=== PATIENT | female | born 1990 | race Caucasian/White ===

== ENCOUNTER 2017-01-23 02:40 | Emergency (ER) | payer OTHER, SELFPAY ==
[~2017-01-23 02:40] MED LIST: ACET1TAB17 PO; ACET50TA PO; ALBU17IN INH; AMBI6.25 PO; ATARAX PO; ATOM40CA PO; CLEO300C2 PO; COLA100C5 PO; EUCECRE3 TOP; IBUP80TA PO; KLON0.5T PO; No home meds; PRED20TA PO; PROZ20CA11 PO; ROBISYP PO; SYMB80INH INH; TRAZ1TAB14 PO; TRIAMCINOLONE CREAM TOP; TUMS500C PO; VITMTA PO; ZYRT10CA PO; ZYRT10TA PO
[2017-01-23] MEDS ORDERED: phenergan TOP (03:02)
[2017-01-23] MEDS ORDERED: NS 1,000 ML IV ONE (04:45)
[2017-01-23] MEDS ORDERED: METOCLOPRAMIDE INJ 10MG/2ML VIAL (J2765) IV ONE (04:45)
[2017-01-23 05:22] LABS: BASO % 0.4 % (0.0-1.0); EOS # 0.4 K/mm3 (0.0-0.50); EOS % 3.6 % (0.0-3.0); LARGE UNSTAINED CELL # 0.2 K/mm3 (0.0-0.4); LARGE UNSTAINED CELL % 1.6 % (0.0-4.0); LYMPH # 1.9 K/mm3 (1.5-6.5); MEAN CORPUSCULAR HEMOGLOBIN 33.3 pg (27.0-33.0); MEAN CORPUSCULAR HGB CONC 36.4 g/dl (32.0-36.5); MEAN CORPUSCULAR VOLUME 91.5 fl (80.0-96.0); MONO # 0.5 K/mm3 (0.0-0.8); MONO % 4.6 % (0.0-5.0); NEUTROPHILS # 7.3 K/mm3 (1.8-7.7); NEUTROPHILS % 72.9 % (36.0-66.0); PLATELET COUNT, AUTOMATED 191 k/mm3 (150-450); RED CELL DISTRIBUTION WIDTH 13.5 % (11.5-14.5)
[2017-01-23 05:43] LABS: ALBUMIN 3.3 GM/DL (3.2-5.2); ALKALINE PHOSPHATASE 71 U/L (45-117); ALT/SGPT 22 U/L (12-78); ANION GAP 8 MEQ/L (8-16); AST/SGOT 13 U/L (15-37); BILIRUBIN,DIRECT 0.1 MG/DL (0.0-0.2); BILIRUBIN,TOTAL 0.6 MG/DL (0.2-1.0); BLOOD UREA NITROGEN 9 MG/DL (7-18); CALCIUM LEVEL 8.6 MG/DL (8.5-10.1); CARBON DIOXIDE LEVEL 24 MEQ/L (21-32); CHLORIDE LEVEL 104 MEQ/L (98-107); CREATININE FOR GFR 0.51 MG/DL (0.55-1.02); GLOMERULAR FILTRATION RATE > 60.0 (>60); GLUCOSE, FASTING 82 MG/DL (70-105); POTASSIUM SERUM 3.4 MEQ/L (3.5-5.1); SODIUM LEVEL 136 MEQ/L (136-145); TOTAL PROTEIN 6.6 GM/DL (6.4-8.2)
[2017-01-23] MEDS ORDERED: REGL10TA6 PO (06:25)
[2017-01-23 06:32] VITALS: BP 132/78
== END 2017-01-23 06:33 | disposition home or self-care (01) ==
LOC: M ED 02:40
DX: O21.0 Mild hyperemesis gravidarum (principal); Z3A.16 16 weeks gestation of pregnancy
CPT/HCPCS: 36415; 80048; 80076; 83690; 85025; 96361; 96374; 99284; J2765

== ENCOUNTER 2021-01-29 11:15 | Emergency (ER) | payer SELFPAY ==
[~2021-01-29] VITALS: Ht 165.1 cm; Wt 99.3 kg
[~2021-01-29 11:15] MED LIST changes: -ACET1TAB17 PO; +ACET1TAB55 PO; -ACET50TA PO; -ATOM40CA PO; +ATOM40CA16 PO; +MAPA500T17 PO; +MAPA500T2 PO; +REGL10TA6 PO; +phenergan TOP
[2021-01-29] MEDS ORDERED: NS 1,000 ML IV SCH (13:15)
[2021-01-29] MEDS ORDERED: ONDANSETRON 4MG/2ML VIAL IV ONE (13:15)
[2021-01-29] MEDS ORDERED: MORPHINE 4 MG/ML 1ML VIAL/SYRINGE (J2270) IV PRN (13:15)
[2021-01-29 14:13] LABS: URINE PREG TEST NEGATIVE (NEGATIVE)
[2021-01-29 14:22] LABS: BASO # 0.1 10^3/uL (0.0-0.2); BASO % 0.8 % (0.0-1.0); EOS # 0.3 10^3/uL (0.0-0.5); EOS % 3.4 % (0.0-3.0); HEMATOCRIT 40.8 % (36.0-47.0); HEMOGLOBIN 13.9 g/dl (12.0-15.5); LYMPH # 1.7 10^3/uL (1.5-5.0); LYMPH % 21.8 % (24.0-44.0); MEAN CORPUSCULAR HEMOGLOBIN 32.3 pg (27.0-33.0); MEAN CORPUSCULAR HGB CONC 34.1 g/dl (32.0-36.5); MEAN CORPUSCULAR VOLUME 94.7 fl (80.0-96.0); MONO # 0.9 10^3/uL (0.0-0.8); MONO % 11.5 % (2.0-8.0); NEUTROPHILS # 4.8 10^3/uL (1.5-8.5); NEUTROPHILS % 62.1 % (36.0-66.0); PLATELET COUNT, AUTOMATED 201 10^3/uL (150-450); RED BLOOD COUNT 4.31 10^6/uL (4.00-5.40); WHITE BLOOD COUNT 7.7 10^3/uL (4.0-10.0)
[2021-01-29 14:50] LABS: ALBUMIN 3.9 GM/DL (3.2-5.2); ALT/SGPT 47 U/L (12-78); BILIRUBIN,DIRECT 0.1 MG/DL (0.0-0.2); BILIRUBIN,TOTAL 0.3 MG/DL (0.2-1.0); BLOOD UREA NITROGEN 11 MG/DL (7-18); CARBON DIOXIDE LEVEL 28 MEQ/L (21-32); CHLORIDE LEVEL 107 MEQ/L (98-107); CREATININE FOR GFR 0.63 MG/DL (0.55-1.30); GLOMERULAR FILTRATION RATE > 60.0 (>60); GLUCOSE, FASTING 84 MG/DL (70-100); LIPASE 74 U/L (73-393); POTASSIUM SERUM 4.6 MEQ/L (3.5-5.1); SODIUM LEVEL 140 MEQ/L (136-145); TOTAL PROTEIN 6.7 GM/DL (6.4-8.2)
[2021-01-29 15:44] LABS: GC DNA AMPLIFICATION NEGATIVE (NEGATIVE)
--- NOTE | 2021-01-29 15:51 | REP ---
INDICATION: EPIGASTRIC/RUQ PAIN S/P CHOLECYSTECOMY. COMPARISON: 09/14/2014 TECHNIQUE: Routine ultrasound of the right upper quadrant FINDINGS: The gallbladder has been removed. The bile ducts are not dilated. The common bile duct measures 5 mm. The liver shows normal size. There is a 3.2 x 2.9 x 2.3 cm hemangioma in the right lobe which is unchanged compared with the previous study. Pancreas, aorta and right kidney are unremarkable. IMPRESSION: Stable hemangioma in the right lobe. Postoperative changes after cholecystectomy. No biliary tract dilatation. <Electronically signed by Louis Toney > 01/29/21 [id number]
[2021-01-29] MEDS ORDERED: ZOFR4TAB16 PO (16:47)
[2021-01-29 17:22] VITALS: BP 121/71
== END 2021-01-29 17:45 | disposition home or self-care (01) ==
LOC: M ED 11:15
DX: K29.70 Gastritis, unspecified, without bleeding (principal); R11.2 Nausea with vomiting, unspecified; R19.7 Diarrhea, unspecified; R10.11 Right upper quadrant pain; R93.2 Abnormal findings on diagnostic imaging of liver and biliary tract; K21.9 Gastro-esophageal reflux disease without esophagitis; J45.909 Unspecified asthma, uncomplicated; F41.9 Anxiety disorder, unspecified; F32.9 Major depressive disorder, single episode, unspecified; L40.9 Psoriasis, unspecified; J42 Unspecified chronic bronchitis; F17.200 Nicotine dependence, unspecified, uncomplicated; F12.10 Cannabis abuse, uncomplicated; Z87.442 Personal history of urinary calculi; Z91.040 Latex allergy status
CPT/HCPCS: 76705; 80048; 80076; 81001; 83690; 84703; 85025; 87491; 87591; 99284; J2405

== ENCOUNTER 2021-02-15 14:58 | Emergency (ER) | payer SELFPAY ==
[~2021-02-15] VITALS: Ht 165.1 cm; Wt 97.9 kg
[~2021-02-15 14:58] MED LIST changes: +ZOFR4TAB16 PO
[2021-02-15 15:51] LABS: HEMATOCRIT 41.5 % (36.0-47.0); HEMOGLOBIN 14.1 g/dl (12.0-15.5); MEAN CORPUSCULAR HEMOGLOBIN 32.4 pg (27.0-33.0); MEAN CORPUSCULAR VOLUME 95.4 fl (80.0-96.0); PLATELET COUNT, AUTOMATED 244 10^3/uL (150-450); RED BLOOD COUNT 4.35 10^6/uL (4.00-5.40); WHITE BLOOD COUNT 8.4 10^3/uL (4.0-10.0)
[2021-02-15 16:14] LABS: AMPHETAMINES LEVEL URINE NEGATIVE (NEGATIVE); BARBITURATES URINE NEGATIVE (NEGATIVE); BENZODIAZEPINES URINE NEGATIVE (NEGATIVE); CANNABINOIDS URINE POSITIVE (NEGATIVE); COCAINE METABOLITE URINE NEGATIVE (NEGATIVE); METHADONE URINE NEGATIVE (NEGATIVE); OPIATES URINE NEGATIVE (NEGATIVE); PHENCYCLIDINE URINE NEGATIVE (NEGATIVE)
[2021-02-15 16:18] LABS: HCG, SERUM QUALITATIVE NEGATIVE (NEGATIVE)
[2021-02-15 16:22] LABS: ALT/SGPT 29 U/L (12-78); BILIRUBIN,DIRECT 0.1 MG/DL (0.0-0.2); BILIRUBIN,TOTAL 0.3 MG/DL (0.2-1.0); BLOOD UREA NITROGEN 10 MG/DL (7-18); CALCIUM LEVEL 8.9 MG/DL (8.5-10.1); CARBON DIOXIDE LEVEL 25 MEQ/L (21-32); CHLORIDE LEVEL 111 MEQ/L (98-107); CREATININE FOR GFR 0.74 MG/DL (0.55-1.30); ETHYL ALCOHOL (ETHANOL) < 0.003 % (0.000-0.010); GLOMERULAR FILTRATION RATE > 60.0 (>60); GLUCOSE, FASTING 95 MG/DL (70-100); POTASSIUM SERUM 4.2 MEQ/L (3.5-5.1); SODIUM LEVEL 140 MEQ/L (136-145)
[2021-02-15 16:23] LABS: ACETAMINOPHEN LEVEL 2.1 UG/ML (10.0-30.0); SALICYLATE LEVEL 3.6 MG/DL (5.0-30.0); THYROID STIMULATING HORMONE 0.392 uIU/ML (0.358-3.740)
[2021-02-15] MEDS ORDERED: HOME MED LIST COMPLETE! XX SCH (21:30)
[2021-02-16 12:48] LABS: RSV AMPLIFICATION NEGATIVE (NEGATIVE)
[2021-02-16 15:49] VITALS: BP 119/66
[2021-02-16] MEDS ORDERED: HOME MED LIST COMPLETE! XX SCH (19:35)
--- NOTE | 2021-02-16 21:16 | ECGEPIP ---
[facility] - ED Test Date: 2021-02-15 Pat Name: ABDULLAHI HEDRICK Department: Room: - Gender: Female Drive In Waiter/Waitress: ALKA : 1990 Requested By: SHAVON CASILLAS Order Number: [id number] Reading MD: Patti Kaur Measurements Intervals [place] Rate: 72 P: 54 [place]: 174 QRS: 54 QRSD: 96 T: 47 QT: 384 QTc: 420 Interpretive Statements Normal sinus rhythm No prior Electronically Signed on 02-16-2021 21:16:33 EDT by Patti Kaur
== END 2021-02-17 02:00 ==
LOC: M ED 14:58
DX: R45.851 Suicidal ideations (principal); F31.89 Other bipolar disorder; F90.9 Attention-deficit hyperactivity disorder, unspecified type; F17.200 Nicotine dependence, unspecified, uncomplicated; F12.10 Cannabis abuse, uncomplicated; Z91.040 Latex allergy status

== ENCOUNTER 2021-03-19 09:21 | Emergency (ER) | payer OTHER, SELFPAY ==
[~2021-03-19] VITALS: Ht 165.1 cm; Wt 97.7 kg
[2021-03-19 09:22] VITALS: BP 130/81
[2021-03-19] MEDS ORDERED: GABA600T4 (09:39)
[2021-03-19] MEDS ORDERED: FLUO20CA22 (09:39)
[2021-03-19] MEDS ORDERED: IVER1TAB (09:39)
[2021-03-19] MEDS ORDERED: BUSP5TA (09:39)
[2021-03-19] MEDS ORDERED: ARIP1TAB6 (09:39)
[2021-03-19] MEDS ORDERED: HYDR50TA70 (09:39)
--- NOTE | 2021-03-19 12:13 | REP ---
INDICATION: wheezing r sided rales. COMPARISON: 05/14/2015 TECHNIQUE: PA and lateral FINDINGS: There is evidence of pulmonary vascular redistribution which has developed since the last exam. There is a slight haziness seen throughout the basilar vascularity. There are no acute patchy parenchymal opacities or pleural effusions. The heart is not enlarged. The osseous structures are intact. IMPRESSION: Possible mild early interstitial edema. <Electronically signed by Chapin Kelly > 03/19/21 [id number]
[2021-03-19] MEDS ORDERED: PRED20TA PO (12:28)
[2021-03-19] MEDS ORDERED: VENTAER INH (12:28)
--- NOTE | 2021-03-19 14:58 | ED PDOC ---
Post-Departure Follow-Up radiology rpeor tfaxed to linda Morales Sarah MD Mar 19, 2021 14:58
== END 2021-03-19 12:41 | disposition home or self-care (01) ==
LOC: M ED 09:21
DX: J00 Acute nasopharyngitis [common cold] (principal); R06.2 Wheezing; F41.9 Anxiety disorder, unspecified; F32.9 Major depressive disorder, single episode, unspecified; F17.200 Nicotine dependence, unspecified, uncomplicated; F12.10 Cannabis abuse, uncomplicated; Z87.09 Personal history of other diseases of the respiratory system; Z91.040 Latex allergy status

== ENCOUNTER 2021-07-18 01:05 | Emergency (ER) | payer MEDICAID, OTHER ==
[~2021-07-18] VITALS: Ht 165.1 cm; Wt 92.2 kg
[~2021-07-18 01:05] MED LIST changes: +ARIP1TAB6; +BUSP5TA; +FLUO20CA22; +GABA600T4; +HYDR50TA70; +IVER1TAB; +VENTAER INH
[2021-07-18 02:30] LABS: BASO # 0.1 10^3/uL (0.0-0.2); BASO % 0.3 % (0.0-1.0); EOS # 0.3 10^3/uL (0.0-0.5); EOS % 1.3 % (0.0-3.0); HEMATOCRIT 42.9 % (36.0-47.0); HEMOGLOBIN 14.8 g/dl (12.0-15.5); LYMPH # 1.3 10^3/uL (1.5-5.0); LYMPH % 6.1 % (24.0-44.0); MEAN CORPUSCULAR HGB CONC 34.5 g/dl (32.0-36.5); MEAN CORPUSCULAR VOLUME 92.9 fl (80.0-96.0); MONO # 1.5 10^3/uL (0.0-0.8); NEUTROPHILS # 17.9 10^3/uL (1.5-8.5); NEUTROPHILS % 84.8 % (36.0-66.0); PLATELET COUNT, AUTOMATED 271 10^3/uL (150-450); RED BLOOD COUNT 4.62 10^6/uL (4.00-5.40); WHITE BLOOD COUNT 21.2 10^3/uL (4.0-10.0)
[2021-07-18 03:19] LABS: ALBUMIN 4.2 GM/DL (3.2-5.2); ALT/SGPT 50 U/L (12-78); AMYLASE 43 U/L (25-115); BILIRUBIN,DIRECT < 0.1 MG/DL (0.0-0.2); BILIRUBIN,TOTAL 0.4 MG/DL (0.2-1.0); LIPASE 206 U/L (73-393); TOTAL PROTEIN 7.7 GM/DL (6.4-8.2)
[2021-07-18 04:14] LABS: HCG, SERUM QUALITATIVE NEGATIVE (NEGATIVE)
[2021-07-18] MEDS ORDERED: ONDANSETRON 4MG/2ML VIAL IV ONE (04:40)
[2021-07-18] MEDS ORDERED: NS 1,000 ML IV ONE (04:40)
[2021-07-18] MEDS ORDERED: KETOROLAC 30 MG/ML 1ML VIAL IV ONE (04:40)
[2021-07-18] MEDS ORDERED: ISOVUE-370 76% 100ML VIAL As Ordered ONE (04:44)
[2021-07-18] MEDS ORDERED: metroNIDAZOLE 500 MG in IV 1 EA IV ONE (06:30)
[2021-07-18] MEDS ORDERED: METR-265 PO (07:14)
[2021-07-18 07:51] VITALS: BP 98/61
== END 2021-07-18 08:09 | disposition home or self-care (01) ==
LOC: M ED 01:05
DX: A08.11 Acute gastroenteropathy due to Norwalk agent (principal); K90.0 Celiac disease; B96.20 Unspecified Escherichia coli [E. coli] as the cause of diseases classified elsewhere; K76.89 Other specified diseases of liver; F17.200 Nicotine dependence, unspecified, uncomplicated; Z79.899 Other long term (current) drug therapy; Z91.040 Latex allergy status
CPT/HCPCS: 74177; 80047; 80076; 81001; 82150; 83690; 84703; 85025; 87086; 87505; 93041; 96361; 96365; 96375; 99284; J1885; J2405; Q9967

== ENCOUNTER 2021-07-28 12:01 | Emergency (ER) | payer MEDICAID, OTHER ==
[~2021-07-28] VITALS: Ht 165.1 cm; Wt 91.0 kg
[~2021-07-28 12:01] MED LIST changes: -BUSP5TA; +BUSP5TA PO; -GABA600T4; +GABA600T4 PO; -HYDR50TA70; +HYDR50TA70 PO; +METR-265 PO
[2021-07-28] MEDS ORDERED: SERT50TA29 PO (12:11)
[2021-07-28] MEDS ORDERED: ATOM40CA9 PO (12:11)
[2021-07-28 12:55] LABS: HEMATOCRIT 39.4 % (36.0-47.0); HEMOGLOBIN 13.5 g/dl (12.0-15.5); MEAN CORPUSCULAR HEMOGLOBIN 32.5 pg (27.0-33.0); MEAN CORPUSCULAR HGB CONC 34.3 g/dl (32.0-36.5); MEAN CORPUSCULAR VOLUME 94.7 fl (80.0-96.0); PLATELET COUNT, AUTOMATED 249 10^3/uL (150-450); RED BLOOD COUNT 4.16 10^6/uL (4.00-5.40)
[2021-07-28 13:23] LABS: HCG, SERUM QUALITATIVE NEGATIVE (NEGATIVE)
[2021-07-28 13:27] LABS: AMPHETAMINES LEVEL URINE NEGATIVE (NEGATIVE); BARBITURATES URINE NEGATIVE (NEGATIVE); BENZODIAZEPINES URINE NEGATIVE (NEGATIVE); CANNABINOIDS URINE POSITIVE (NEGATIVE); COCAINE METABOLITE URINE NEGATIVE (NEGATIVE); METHADONE URINE NEGATIVE (NEGATIVE); OPIATES URINE NEGATIVE (NEGATIVE); PHENCYCLIDINE URINE NEGATIVE (NEGATIVE)
[2021-07-28 13:39] LABS: ACETAMINOPHEN LEVEL < 2.0 UG/ML (10.0-30.0); ALBUMIN 3.9 GM/DL (3.2-5.2); ALT/SGPT 22 U/L (12-78); BILIRUBIN,DIRECT < 0.1 MG/DL (0.0-0.2); BILIRUBIN,TOTAL 0.2 MG/DL (0.2-1.0); BLOOD UREA NITROGEN 14 MG/DL (7-18); CALCIUM LEVEL 8.9 MG/DL (8.5-10.1); CARBON DIOXIDE LEVEL 27 MEQ/L (21-32); CHLORIDE LEVEL 110 MEQ/L (98-107); CREATININE FOR GFR 0.86 MG/DL (0.55-1.30); ETHYL ALCOHOL (ETHANOL) < 0.003 % (0.000-0.010); GLOMERULAR FILTRATION RATE > 60.0 (>60); GLUCOSE, FASTING 105 MG/DL (70-100); POTASSIUM SERUM 4.7 MEQ/L (3.5-5.1); SALICYLATE LEVEL 3.8 MG/DL (5.0-30.0); SODIUM LEVEL 139 MEQ/L (136-145); THYROID STIMULATING HORMONE 0.641 uIU/ML (0.358-3.740); TOTAL PROTEIN 6.8 GM/DL (6.4-8.2)
[2021-07-28] MEDS ORDERED: OXCA300T14 PO (17:48)
[2021-07-28] MEDS ORDERED: GABA-282 PO (17:48)
[2021-07-28] MEDS ORDERED: ARIP1TAB PO (17:48)
[2021-07-28] MEDS ORDERED: ARIP1TAB10 PO (19:31)
[2021-07-28] MEDS ORDERED: ATOM60CA2 PO (21:52)
[2021-07-28] MEDS ORDERED: HOME MED LIST COMPLETE! XX SCH (21:55)
[2021-07-29] MEDS ORDERED: ATOMOXETINE HCL 40 MG CAP (STRATTERA) PO SCH (09:00)
[2021-07-29] MEDS ORDERED: ARIPiprazole 10 MG TAB PO SCH (09:00)
[2021-07-29] MEDS ORDERED: OXcarbazepine 300 MG TAB PO SCH (09:00)
[2021-07-29] MEDS ORDERED: SERTRALINE HCL 50 MG TAB PO SCH (09:00)
[2021-07-29] MEDS: GABAPENTIN 300 MG CAP PO SCH ×3 (10:42→21:00)
[2021-07-29] MEDS: busPIRone 5 MG TAB PO SCH ×2 (10:43→21:00)
[2021-07-29 22:16] VITALS: BP 145/89
== END 2021-07-29 22:47 ==
LOC: M ED 12:01
DX: F32.9 Major depressive disorder, single episode, unspecified (principal); R45.851 Suicidal ideations; R00.1 Bradycardia, unspecified; Z79.899 Other long term (current) drug therapy; Z91.040 Latex allergy status

== ENCOUNTER 2022-06-07 12:28 | Emergency (ER) | payer OTHER ==
[~2022-06-07] VITALS: Ht 165.1 cm; Wt 102.1 kg
[~2022-06-07 12:28] MED LIST changes: +ARIP1TAB PO; +ARIP1TAB10 PO; +ATOM40CA9 PO; +ATOM60CA2 PO; +GABA-282 PO; +OXCA300T14 PO; +SERT50TA29 PO
[2022-06-07] MEDS ORDERED: KETOROLAC 30 MG/ML 1ML VIAL IM ONE (16:55)
[2022-06-07] MEDS ORDERED: KETO10TAB PO (16:56)
[2022-06-07 17:20] VITALS: BP 131/76
== END 2022-06-07 17:21 | disposition home or self-care (01) ==
LOC: M ED 12:28
DX: M62.830 Muscle spasm of back (principal); Z91.040 Latex allergy status; Z79.891 Long term (current) use of opiate analgesic; Z79.899 Other long term (current) drug therapy
CPT/HCPCS: 96372; 99283; J1885

== ENCOUNTER → 2022-09-03 | Outpatient (CLI) | payer OTHER ==
[~2022-09-03] MED LIST changes: +KETO10TAB PO
[2022-09-03 14:45] LABS: BASO # 0.1 10^3/uL (0.0-0.2); BASO % 0.9 % (0.0-1.0); EOS # 0.4 10^3/uL (0.0-0.5); HEMATOCRIT 44.8 % (36.0-47.0); HEMOGLOBIN 14.9 g/dl (12.0-15.5); LYMPH # 2.3 10^3/uL (1.5-5.0); LYMPH % 28.2 % (24.0-44.0); MEAN CORPUSCULAR HGB CONC 33.3 g/dl (32.0-36.5); MEAN CORPUSCULAR VOLUME 96.1 fl (80.0-96.0); MONO # 0.8 10^3/uL (0.0-0.8); MONO % 10.5 % (2.0-8.0); NEUTROPHILS # 4.4 10^3/uL (1.5-8.5); PLATELET COUNT, AUTOMATED 303 10^3/uL (150-450); RED BLOOD COUNT 4.66 10^6/uL (4.00-5.40)
[2022-09-03 14:50] LABS: ALBUMIN 4.2 G/DL (3.2-5.2); ALKALINE PHOSPHATASE 87 U/L (46-116); ALT/SGPT 21 U/L (7.0-40); AST/SGOT 15 U/L (<34); BILIRUBIN,DIRECT 0.2 MG/DL (<0.4); BILIRUBIN,TOTAL 0.7 MG/DL (0.3-1.2); BLOOD UREA NITROGEN 15 MG/DL (9-23); CALCIUM LEVEL 9.9 MG/DL (8.5-10.1); CARBON DIOXIDE LEVEL 27 MMOL/L (20-31); CHLORIDE LEVEL 104 MMOL/L (98-107); CHOLESTEROL LEVEL 221 MG/DL (<200); CREATININE FOR GFR 0.87 MG/DL (0.55-1.30); GLOMERULAR FILTRATION RATE > 60.0 (>60); GLUCOSE, FASTING 89 MG/DL (60-100); GLUCOSE,RANDOM 89 MG/DL (LESS THAN 200); HDL CHOLESTEROL 37.4 MG/DL (>40); LDL CHOLESTEROL 149.8 MG/DL (<100); NON-HDL-C 183.6 MG/DL; POTASSIUM SERUM 4.7 MMOL/L (3.5-5.1); SODIUM LEVEL 138 MMOL/L (136-145); TOTAL PROTEIN 7.2 G/DL (5.7-8.2); TRIGLYCERIDES LEVEL 169 MG/DL (<150)
[2022-09-03 14:52] LABS: THYROID STIMULATING HORMONE 1.431 uIU/ML (0.55-4.78); TOTAL 25(OH) VITAMIN D 19.4 NG/ML (20.0-100.0)
[2022-09-03 15:14] LABS: HEMOGLOBIN A1c 5.4 % (4.0-6.0)
== END ==
LOC: M LAB 13:10
PROVIDERS: ATTEND Registered Nurse
DX: F32.9 Major depressive disorder, single episode, unspecified (principal); R00.1 Bradycardia, unspecified; I49.9 Cardiac arrhythmia, unspecified

== ENCOUNTER → 2022-10-03 | Outpatient (CLI) | payer OTHER ==
[2022-10-03 11:32] LABS: BASO # 0.1 10^3/uL (0.0-0.2); BASO % 0.7 % (0.0-1.0); EOS # 0.3 10^3/uL (0.0-0.5); HEMATOCRIT 41.6 % (36.0-47.0); HEMOGLOBIN 13.8 g/dl (12.0-15.5); LYMPH # 1.6 10^3/uL (1.5-5.0); LYMPH % 19.8 % (24.0-44.0); MEAN CORPUSCULAR HEMOGLOBIN 32.2 pg (27.0-33.0); MEAN CORPUSCULAR HGB CONC 33.2 g/dl (32.0-36.5); MONO # 1.2 10^3/uL (0.0-0.8); MONO % 14.7 % (2.0-8.0); NEUTROPHILS % 60.6 % (36.0-66.0); PLATELET COUNT, AUTOMATED 251 10^3/uL (150-450); RED BLOOD COUNT 4.29 10^6/uL (4.00-5.40); WHITE BLOOD COUNT 8.2 10^3/uL (4.0-10.0)
[2022-10-03 11:59] LABS: ERYTHROCYTE SEDIMENTATION RATE 14 mm/hr (0-20)
[2022-10-03 12:12] LABS: FERRITIN 57.3 NG/ML (7.3-270.7)
[2022-10-03 12:13] LABS: TOTAL 25(OH) VITAMIN D 18.1 NG/ML (20.0-100.0); VITAMIN B12 LEVEL 933 PG/ML (211-911)
[2022-10-03 12:18] LABS: ALBUMIN 4.3 G/DL (3.2-5.2); ALKALINE PHOSPHATASE 85 U/L (46-116); ALT/SGPT 25 U/L (7.0-40); AST/SGOT 13 U/L (<34); BILIRUBIN,TOTAL 0.4 MG/DL (0.3-1.2); BLOOD UREA NITROGEN 12 MG/DL (9-23); CALCIUM LEVEL 9.2 MG/DL (8.5-10.1); CARBON DIOXIDE LEVEL 28 MMOL/L (20-31); CHLORIDE LEVEL 105 MMOL/L (98-107); CHOLESTEROL LEVEL 153 MG/DL (<200); CREATININE FOR GFR 0.87 MG/DL (0.55-1.30); GLOMERULAR FILTRATION RATE > 60.0 (>60); GLUCOSE, FASTING 83 MG/DL (60-100); HDL CHOLESTEROL 34.7 MG/DL (>40); LDL CHOLESTEROL 97.1 MG/DL (<100); NON-HDL-C 118.3 MG/DL; SODIUM LEVEL 140 MMOL/L (136-145); TRIGLYCERIDES LEVEL 106 MG/DL (<150)
[2022-10-03 15:22] LABS: RHEUMATOID FACTOR QUANT < 3.5 IU/ML (<14)
[2022-10-03 15:25] LABS: THYROID STIMULATING HORMONE 1.025 uIU/ML (0.55-4.78)
[2022-10-04 19:07] LABS: ANTINUCLEAR ANTIBODIES DIRECT Negative (Negative); CYCLIC CITRULLINATED PEPTIDE 3 units (0-19)
== END ==
LOC: M PLALAB 08:59
PROVIDERS: ATTEND Internal Medicine Hematology
DX: F33.40 Major depressive disorder, recurrent, in remission, unspecified (principal); L30.8 Other specified dermatitis

== ENCOUNTER 2022-11-11 22:22 | Emergency (ER) | payer OTHER ==
[~2022-11-11] VITALS: Ht 165.1 cm; Wt 92.9 kg
[2022-11-11] MEDS ORDERED: escitalopram (22:30)
[2022-11-11] MEDS ORDERED: ALBU8.5H (22:30)
[2022-11-11] MEDS ORDERED: QUET1TAB17 (22:30)
[2022-11-11] MEDS ORDERED: ADV250INH (22:30)
[2022-11-11] MEDS ORDERED: CLON0.5T2 (22:30)
[2022-11-12 04:03] VITALS: BP 128/85
== END 2022-11-12 04:42 | disposition home or self-care (01) ==
LOC: M ED 22:22
DX: S90.31XA Contusion of right foot, initial encounter (principal); W20.8XXA Other cause of strike by thrown, projected or falling object, initial encounter; Y92.009 Unspecified place in unspecified non-institutional (private) residence as the place of occurrence of the external cause; J45.909 Unspecified asthma, uncomplicated; F41.1 Generalized anxiety disorder; F17.200 Nicotine dependence, unspecified, uncomplicated; F12.10 Cannabis abuse, uncomplicated; Z91.040 Latex allergy status

== ENCOUNTER 2022-12-03 16:07 | Inpatient (IN) | payer MEDICAID, OTHER ==
[~2022-12-03] VITALS: Ht 165.1 cm; Wt 92.8 kg
[~2022-12-03 16:07] MED LIST changes: +ADV250INH; +ALBU8.5H; +CLON0.5T2; +QUET1TAB17; +escitalopram
[2022-12-03 17:29] LABS: AMPHETAMINES LEVEL URINE NEGATIVE (NEGATIVE); BARBITURATES URINE NEGATIVE (NEGATIVE); BENZODIAZEPINES URINE NEGATIVE (NEGATIVE); COCAINE METABOLITE URINE NEGATIVE (NEGATIVE); HEMATOCRIT 43.9 % (36.0-47.0); HEMOGLOBIN 15.6 g/dl (12.0-15.5); MEAN CORPUSCULAR HEMOGLOBIN 32.5 pg (27.0-33.0); MEAN CORPUSCULAR HGB CONC 35.5 g/dl (32.0-36.5); MEAN CORPUSCULAR VOLUME 91.5 fl (80.0-96.0); METHADONE URINE NEGATIVE (NEGATIVE); OPIATES URINE NEGATIVE (NEGATIVE); PHENCYCLIDINE URINE NEGATIVE (NEGATIVE); PLATELET COUNT, AUTOMATED 309 10^3/uL (150-450); WHITE BLOOD COUNT 8.9 10^3/uL (4.0-10.0)
[2022-12-03 17:31] LABS: ETHYL ALCOHOL (ETHANOL) < 0.003 % (0.000-0.010)
[2022-12-03 17:33] LABS: ACETAMINOPHEN LEVEL < 2.0 UG/ML (10.0-20.0); ALBUMIN 4.4 G/DL (3.2-5.2); ALKALINE PHOSPHATASE 93 U/L (46-116); ALT/SGPT 25 U/L (7.0-40); AST/SGOT < 8 U/L (<34); BILIRUBIN,DIRECT 0.1 MG/DL (<0.4); BILIRUBIN,TOTAL 0.5 MG/DL (0.3-1.2); BLOOD UREA NITROGEN 16 MG/DL (9-23); CALCIUM LEVEL 9.7 MG/DL (8.5-10.1); CARBON DIOXIDE LEVEL 21 MMOL/L (20-31); CHLORIDE LEVEL 107 MMOL/L (98-107); CREATININE FOR GFR 0.77 MG/DL (0.55-1.30); GLOMERULAR FILTRATION RATE > 60.0 (>60); GLUCOSE, FASTING 88 MG/DL (60-100); POTASSIUM SERUM 4.2 MMOL/L (3.5-5.1); SALICYLATE LEVEL < 3.0 MG/DL (<30); SODIUM LEVEL 136 MMOL/L (136-145); TOTAL PROTEIN 7.6 G/DL (5.7-8.2)
[2022-12-03 17:35] LABS: THYROID STIMULATING HORMONE 1.036 uIU/ML (0.55-4.78)
[2022-12-03 17:40] LABS: CANNABINOIDS URINE POSITIVE (NEGATIVE); HCG, SERUM QUALITATIVE NEGATIVE (NEGATIVE)
[2022-12-03] MEDS ORDERED: MOM 30ML SUSPENSION UDC PO PRN (20:00)
[2022-12-03] MEDS ORDERED: MAALOX 30 ML SUSP *UDC PO PRN (20:00)
[2022-12-03] MEDS ORDERED: ACETAMINOPHEN TAB 650MG DOSE (2X325MG) PO PRN (20:00)
[2022-12-03] MEDS ORDERED: ALBU8.5H INH (21:01)
[2022-12-03] MEDS ORDERED: ADV250INH INH (21:01)
[2022-12-03] MEDS ORDERED: CLON0.5T2 PO (21:01)
[2022-12-03] MEDS ORDERED: LEXA1TAB PO (21:01)
[2022-12-03] MEDS ORDERED: ABRE10CR TOP (21:01)
[2022-12-03] MEDS ORDERED: ERGO500029 PO (21:01)
[2022-12-03] MEDS ORDERED: HOME MED LIST COMPLETE! XX SCH (21:05)
[2022-12-03 22:03] VITALS: BP 127/72; TEMP 98; O2SAT 99
[2022-12-04 05:55] VITALS: BP 108/62; TEMP 98.2; O2SAT 96
[2022-12-04] MEDS: DIVALPROEX 250MG *ER* TAB PO SCH ×2 (10:12→20:22)
[2022-12-04] MEDS: OLANZapine ORAL DISINTEGRATING TAB 5MG PO PRN (11:29)
[2022-12-04] MEDS ORDERED: ALBUTEROL 90 MCG/ACT 8GM HFA INHALER INH PRN (11:55)
[2022-12-04] MEDS: ONDANSETRON 4MG ORAL DISINTEGRATING TAB SL PRN (12:36)
[2022-12-04] MEDS: ADVAIR HFA 115/21MCG INHALER INH SCH ×2 (13:11→20:23)
[2022-12-04] MEDS: VITAMIN D 50,000 UNITS CAPSULE (ERGOCALCIFEROL 1.25MG) PO SCH (13:12)
[2022-12-04] MEDS ORDERED: BENZOCAINE 10% 9GM TUBE (ANBESOL) TOP PRN (13:15)
[2022-12-04 17:49] VITALS: BP 147/75; TEMP 98
[2022-12-04] MEDS: LURASIDONE HCL 40MG TAB (LATUDA) PO SCH (18:02)
[2022-12-04] MEDS: traZODone 50 MG TAB PO PRN (20:22)
[2022-12-04] MEDS: MIRTAZAPINE 7.5MG PER 1/2 TABLET PO SCH (20:22)
[2022-12-05 06:58] VITALS: BP 115/55; TEMP 97.3; O2SAT 98
[2022-12-05] MEDS: ADVAIR HFA 115/21MCG INHALER INH SCH ×2 (07:41→20:43)
[2022-12-05] MEDS: ONDANSETRON 4MG ORAL DISINTEGRATING TAB SL PRN (07:41)
[2022-12-05] MEDS: DIVALPROEX 250MG *ER* TAB PO SCH ×2 (08:02→20:43)
[2022-12-05 08:46] LABS: CHOLESTEROL RISK RATIO 5.98 (<5); HDL CHOLESTEROL 34.1 MG/DL (>40); LDL CHOLESTEROL 151.5 MG/DL (<100); NON-HDL-C 169.9 MG/DL
[2022-12-05] MEDS: OLANZapine ORAL DISINTEGRATING TAB 5MG PO PRN (10:38)
[2022-12-05 17:07] VITALS: BP 122/63; TEMP 96.8; O2SAT 99
[2022-12-05] MEDS: LURASIDONE HCL 40MG TAB (LATUDA) PO SCH (17:54)
[2022-12-05] MEDS: PENCICLOVIR 1% CREAM 5GM TOP SCH ×3 (18:56→22:06)
[2022-12-05] MEDS: MIRTAZAPINE 7.5MG PER 1/2 TABLET PO SCH (20:43)
[2022-12-05] MEDS: traZODone 50 MG TAB PO PRN (20:43)
[2022-12-06] MEDS: PENCICLOVIR 1% CREAM 5GM TOP SCH ×12 (02:00→22:09)
[2022-12-06 06:26] VITALS: BP 140/61; TEMP 97.5; O2SAT 100
[2022-12-06] MEDS: ADVAIR HFA 115/21MCG INHALER INH SCH ×2 (08:26→20:27)
[2022-12-06] MEDS: OLANZapine ORAL DISINTEGRATING TAB 5MG PO PRN (12:53)
[2022-12-06] MEDS: ONDANSETRON 4MG ORAL DISINTEGRATING TAB SL PRN (16:59)
[2022-12-06] MEDS: LURASIDONE HCL 40MG TAB (LATUDA) PO SCH (17:04)
[2022-12-06 17:53] VITALS: BP 107/55; TEMP 97.6; O2SAT 97
[2022-12-06] MEDS: DIVALPROEX 500MG *ER* TAB PO SCH (20:28)
[2022-12-06] MEDS: MIRTAZAPINE 7.5MG PER 1/2 TABLET PO SCH (20:28)
[2022-12-06] MEDS: traZODone 50 MG TAB PO PRN (20:30)
[2022-12-07] MEDS: PENCICLOVIR 1% CREAM 5GM TOP SCH ×12 (02:00→22:02)
[2022-12-07 06:23] VITALS: BP 99/51; TEMP 97; O2SAT 97
[2022-12-07] MEDS: ADVAIR HFA 115/21MCG INHALER INH SCH ×2 (07:31→20:32)
[2022-12-07] MEDS: ONDANSETRON 4MG ORAL DISINTEGRATING TAB SL PRN (07:32)
[2022-12-07] MEDS: OLANZapine ORAL DISINTEGRATING TAB 5MG PO PRN (11:56)
[2022-12-07] MEDS: LURASIDONE HCL 40MG TAB (LATUDA) PO SCH (17:11)
[2022-12-07 18:00] VITALS: BP 135/72; TEMP 96.2
[2022-12-07] MEDS: MIRTAZAPINE 7.5MG PER 1/2 TABLET PO SCH (20:31)
[2022-12-07] MEDS: DIVALPROEX 500MG *ER* TAB PO SCH (20:31)
[2022-12-07] MEDS: traZODone 50 MG TAB PO PRN (20:31)
[2022-12-08] MEDS: PENCICLOVIR 1% CREAM 5GM TOP SCH ×12 (01:51→22:18)
[2022-12-08 06:55] VITALS: BP 117/72; TEMP 97.2; O2SAT 97
[2022-12-08] MEDS: ADVAIR HFA 115/21MCG INHALER INH SCH ×2 (08:22→21:16)
[2022-12-08] MEDS: OLANZapine ORAL DISINTEGRATING TAB 5MG PO PRN (10:55)
[2022-12-08 18:00] VITALS: BP 148/90; TEMP 98.5
[2022-12-08] MEDS: LURASIDONE HCL 40MG TAB (LATUDA) PO SCH (18:52)
[2022-12-08] MEDS: DIVALPROEX 500MG *ER* TAB PO SCH (21:17)
[2022-12-08] MEDS: MIRTAZAPINE 7.5MG PER 1/2 TABLET PO SCH (21:17)
[2022-12-08] MEDS: traZODone 50 MG TAB PO PRN (22:39)
[2022-12-09] MEDS: PENCICLOVIR 1% CREAM 5GM TOP SCH ×9 (02:00→16:29)
[2022-12-09 06:43] VITALS: BP 106/58; TEMP 97.6; O2SAT 95
[2022-12-09] MEDS: ADVAIR HFA 115/21MCG INHALER INH SCH ×2 (07:28→21:01)
[2022-12-09] MEDS: OLANZapine ORAL DISINTEGRATING TAB 5MG PO PRN (07:29)
[2022-12-09 14:54] VITALS: BP 132/76; TEMP 97.6; O2SAT 97
[2022-12-09] MEDS: LURASIDONE HCL 40MG TAB (LATUDA) PO SCH (17:33)
[2022-12-09] MEDS: MIRTAZAPINE 7.5MG PER 1/2 TABLET PO SCH (21:01)
[2022-12-09] MEDS: DIVALPROEX 500MG *ER* TAB PO SCH (21:01)
[2022-12-09] MEDS: traZODone 50 MG TAB PO PRN (21:30)
[2022-12-10 06:47] VITALS: BP 112/61; TEMP 98.6; O2SAT 99
[2022-12-10] MEDS ORDERED: LURASIDONE 20 MG TAB (LATUDA) PO SCH (08:00)
[2022-12-10] MEDS: VITAMIN D 50,000 UNITS CAPSULE (ERGOCALCIFEROL 1.25MG) PO SCH (08:21)
[2022-12-10] MEDS: ADVAIR HFA 115/21MCG INHALER INH SCH (08:21)
[2022-12-10] MEDS ORDERED: LATU1TAB PO (11:24)
[2022-12-10] MEDS ORDERED: MIRT-10 PO (11:24)
[2022-12-10] MEDS ORDERED: DEPA500T2 PO (11:24)
[2022-12-10] MEDS ORDERED: TRAZ-252 PO (11:24)
== END 2022-12-10 14:31 | disposition home or self-care (01) | DRG 753 ==
LOC: M ED 16:07 → M ED INP 19:58 → M PSY 21:44 → M ED INP 21:47 → UNDOADMIN 21:47 → M PSY 12-05 18:51
PROVIDERS: ADMIT Student in an Organized Health Care Education/Training Program; ATTEND Student in an Organized Health Care Education/Training Program
DX: F39 Unspecified mood [affective] disorder (principal); F50.81 Binge eating disorder; R45.851 Suicidal ideations; F31.60 Bipolar disorder, current episode mixed, unspecified; Z91.040 Latex allergy status; F41.9 Anxiety disorder, unspecified; J45.909 Unspecified asthma, uncomplicated; L40.0 Psoriasis vulgaris; Z87.891 Personal history of nicotine dependence; E55.9 Vitamin D deficiency, unspecified; Z79.899 Other long term (current) drug therapy